=== PATIENT | female | born 1965 | race Caucasian/White ===

== ENCOUNTER 2017-07-07 17:12 | Emergency (ER) | payer MEDICAID ==
[~2017-07-07] VITALS: Ht 157.5 cm; Wt 67.1 kg
[2017-07-07 17:25] VITALS: BP 185/123
--- NOTE | 2017-07-07 17:42 | NUR ---
ASSUMED PATIENT CARE, CONCUR WITH TRIAGE. NURSING ASSESSMENT COMPLETED.
[2017-07-07] MEDS ORDERED: NACL 0.9% 1,000 ML IV ONE (17:50)
[2017-07-07] MEDS ORDERED: ASPIRIN 325 MG TAB PO ONE (17:50)
[2017-07-07] MEDS ORDERED: ONDANSETRON 4 MG/2 ML VIAL IVP ONE (17:50)
[2017-07-07] MEDS ORDERED: LORazepam 2 MG/ML VIAL IVP ONE (17:50)
[2017-07-07 18:23] LABS: BASOPHILS # (AUTO) 0.4 K/uL (0.00-0.22); EOSINOPHILS # (AUTO) 0.1 K/uL (0-0.4); HEMATOCRIT 43.4 % (36-48); HEMOGLOBIN 14.7 g/dL (12.0-16.0); LYMPHOCYTES # (AUTO) 2.2 K/uL (2.5-16.5); MEAN CORPUSCULAR HEMOGLOBIN 29 pg (27-31); MEAN CORPUSCULAR HGB CONC 34 g/dL (33-37); MEAN CORPUSCULAR VOLUME 85 fL (80-94); MONOCYTES # (AUTO) 0.4 K/uL (0.8-1.0); NEUTROPHILS # (AUTO) 3.8 K/uL (1.8-7.7); PLATELET COUNT (AUTO) 211 K/uL (140-450); RED BLOOD CELL COUNT(AUTO) 5.08 MIL/uL (4.20-5.40); RED CELL DISTRIBUTION WIDTH 12.4 % (11.6-13.7); WHITE BLOOD COUNT (AUTO) 6.9 K/uL (4.8-10.8)
--- NOTE | 2017-07-07 18:29 | NUR ---
DIAGNOSTIC TESTING INITIATED, IV ACCESS ESTABLISHED, LABS DRAWN, XRAY, AND EKG COMPLETED. MAINTAINED ON CARDIAC MONITORING, SAFETY PRECAUTIONS.
[2017-07-07 18:34] LABS: ANION GAP 12.4 (8-16); CARBON DIOXIDE 30.8 mmol/L (21-32); CREATININE 0.9 mg/dL (0.6-1.3); POTASSIUM 3.2 mmol/L (3.5-5.1)
[2017-07-07 18:40] LABS: ALBUMIN 3.9 g/dL (3.4-5.0); TOTAL BILIRUBIN 0.4 mg/dL (0.0-1.0)
[2017-07-07 18:43] LABS: PROTHROMBIN TIME 10.8 secs (10.8-13.4)
[2017-07-07 18:58] LABS: D-DIMER < 100 ng/ml (0-400)
--- NOTE | 2017-07-07 19:25 | NUR ---
report recieved and care taken
[2017-07-07] MEDS ORDERED: POTASSIUM CHLORIDE 10 MEQ TABER PO ONE (19:35)
[2017-07-07 21:00] VITALS: BP 185/123
--- NOTE | 2017-07-07 21:00 | NUR ---
Patient discharged with v/s stable. Written and verbal after care instructions given and explained. Patient verbalized understanding. Ambulatory with steady gait. All questions addressed prior to discharge. Advised to follow up with PMD.
== END 2017-07-07 21:00 | disposition home or self-care (01) ==
LOC: MED 17:12
DX: R07.89 Other chest pain (principal); E87.6 Hypokalemia; I10 Essential (primary) hypertension; R11.0 Nausea; R53.1 Weakness
CPT/HCPCS: 36415; 71045; 80053; 83880; 84484; 85025; 85379; 85610; 85730; 93005; 96361; 96374; 96375; 99285; J2060; J2405; Q0092

== ENCOUNTER 2018-01-04 09:33 | Inpatient (IN) | payer MEDICAID ==
[~2018-01-04] VITALS: Ht 160 cm; Wt 68.5 kg
[2018-01-04 09:40] VITALS: BP 184/107
--- NOTE | 2018-01-04 09:42 | NUR ---
pt ambulated to er bed 05
--- NOTE | 2018-01-04 09:45 | NUR ---
52Y/F BIB DAUGHTER WITH C/O HIGH BLOOD PRESSURE, DIZZINESS, PULSATING H/A, ABDOMINAL PAIN, "THROAT TIGHTENING", SINCE THIS MORNING; PT AAO, NO C/O SOB; BED DOWN; BEDRAILS UP X 1; ER ER MD AWARE AND NOTIFIED OF PT STATUS; WILL CONT TO MONITOR. HX; HTN, THYROID PROBLEMS RX; LEVOTHYROXINE, PAROXETINE
--- NOTE | 2018-01-04 09:54 | NUR ---
Patient being evaluated by physician at bedside.
[2018-01-04] MEDS ORDERED: NITROGLYCERIN 0.4 MG TAB SL ONE (09:55)
[2018-01-04] MEDS ORDERED: ASPIRIN 81 MG TAB.CHEW PO ONE (09:55)
--- NOTE | 2018-01-04 10:17 | NUR ---
RAD AT BEDSIDE
--- NOTE | 2018-01-04 10:18 | NUR ---
LAB AT BEDSIDE
[2018-01-04] MEDS ORDERED: ACETAMINOPHEN 325 MG TAB PO ONE (10:25)
[2018-01-04 10:48] LABS: BASOPHILS % (AUTO) 0.9 % (0.0-2.0); EOSINOPHILS # (AUTO) 0.2 K/uL (0-0.4); EOSINOPHILS % (AUTO) 2.9 % (0.0-4.0); HEMATOCRIT 43.1 % (36-48); HEMOGLOBIN 14.6 g/dL (12.0-16.0); LYMPHOCYTES # (AUTO) 1.7 K/uL (2.5-16.5); LYMPHOCYTES % (AUTO) 32.6 % (20.5-51.1); MEAN CORPUSCULAR HEMOGLOBIN 30 pg (27-31); MEAN CORPUSCULAR HGB CONC 34 g/dL (33-37); MEAN CORPUSCULAR VOLUME 87.1 fL (80-94); MONOCYTES # (AUTO) 0.3 K/uL (0.8-1.0); MONOCYTES % (AUTO) 4.8 % (1.7-9.3); NEUTROPHILS # (AUTO) 3.1 K/uL (1.8-7.7); NEUTROPHILS % (AUTO) 58.8 % (42.2-75.2); PLATELET COUNT (AUTO) 184 K/uL (140-450); RED BLOOD CELL COUNT(AUTO) 4.94 MIL/uL (4.20-5.40); RED CELL DISTRIBUTION WIDTH 13.8 % (11.6-13.7); WHITE BLOOD COUNT (AUTO) 5.3 K/uL (4.8-10.8)
[2018-01-04 11:03] LABS: ANION GAP 9.9 (8-16); CARBON DIOXIDE 27.7 mmol/L (21-32); CREATININE 0.6 mg/dL (0.6-1.3); POTASSIUM 3.6 mmol/L (3.5-5.1)
[2018-01-04 11:09] LABS: ALBUMIN 3.7 g/dL (3.4-5.0); TOTAL BILIRUBIN 0.3 mg/dL (0.0-1.0)
--- NOTE | 2018-01-04 11:54 | NUR ---
Patient will be admitted to care of DR. SOLARES. Admited to TELE FLOOR. Will go to room 125-A. Belongings list completed. Report to MAIKEL Velasquez RN.
[2018-01-04 12:05] VITALS: BP 167/80
--- NOTE | 2018-01-04 12:05 | NUR ---
RECEIVED REPORT FROM ED NURSE CARMEN. PT ARRIVED TO UNIT VIA GURNEY. PT IN STABLE CONDITION. PT IS MACANESE SPEAKING. SKIN INTACT. LUNGS CTA. HEART RHYTHM REGULAR. DENIES PAIN AND DISCOMFORT AT THIS TIME. IV SITE PATENT AND ASYMPTOMATIC. PT SEEN AMBULATORY WITH EVEN AND STEADY GAIT. VITALS ARE SPO2 98%, HR 75, TEMP 97.5 F, RR 17, BP 167/80. WILL AWAIT FOR FLOOR ORDERS. ALL SAFETY PRECAUTIONS IN PLACE, WILL CONTINUE TO MONITOR.
[2018-01-04] MEDS ORDERED: ONDANSETRON 4 MG/2 ML VIAL IVP PRN (13:55)
[2018-01-04] MEDS ORDERED: ACETAMINOPHEN 325 MG TAB PO PRN (13:55)
--- NOTE | 2018-01-04 14:00 | NUR ---
DAUGHTER AT BEDSIDE TO PROVIDE ADMISSION HISTORY. FILM REPLACEMENT ORDERER SERVICES OFFERED BUT PT PREFERS DAUGHTER TO TRANSLATE. ADMISSION HISTORY ALSO TAKEN FROM H&P.
[2018-01-04 14:22] LABS: PROTHROMBIN TIME 9.5 secs (10.8-13.4)
[2018-01-04 14:29] LABS: FREE T4 (FREE THYROXINE) 0.88 ng/dL (0.76-1.46); PHOSPHORUS 3.6 mg/dL (2.5-4.9)
[2018-01-04] MEDS ORDERED: SYN.05 PO (14:34)
[2018-01-04] MEDS ORDERED: PAX10 PO (14:34)
[2018-01-04] MEDS ORDERED: ESTR1TAB19 PO (14:34)
[2018-01-04] MEDS: NACL 0.9% 1,000 ML IV SCH (14:37)
--- NOTE | 2018-01-04 14:37 | NUR ---
SCHEDULED IVF ADMINISTERED PER MD ORDERS. PT STATES THAT SHE "FEELS WELL". NO COMPLAINTS OF PAIN OR DISCOMFORT. WILL CONTINUE TO MONITOR.
[2018-01-04 16:00] VITALS: BP 130/84
--- NOTE | 2018-01-04 17:20 | NUR ---
PT INQUIRING ABOUT DIET. HAVE NOTIFIED MD THAT PT STILL DOES NOT HAVE ACTIVE DIET ORDER FOR DINNER. MD TO PUT IN ORDER FOR DIET.
--- NOTE | 2018-01-04 19:11 | NUR ---
ENDORSED PLAN OF CARE TO FACILITIES DIRECTOR RN. PT IN STABLE CONDITION.
--- NOTE | 2018-01-04 19:11 | NUR ---
RECEIVED BEDSIDE REPORT FROM DAY SHIFT RN MAIKEL. PT IN BED, ON RA, NO SIGNS OF ACUTE DISTRESS, FAMILY AT BEDSIDE. IV IN LEFT AC, 22 G, INFUSING NS AT 50 ML/HR. V/S TAKEN ALL WITHIN BASELINE, UPDATED BOARD, CALL LIGHT WITHIN REACH, BED IN LOWEST POSITION. WILL CONTINUE TO MONITOR.
[2018-01-04 20:00] VITALS: BP 159/98
[2018-01-04] MEDS: HYDROcodone/APAP 5/325 MG 1 TAB TAB PO PRN (20:24)
[2018-01-04] MEDS: DOCUSATE SODIUM 100 MG GELCAP PO SCH (20:24)
[2018-01-04] MEDS: METOPROLOL 25 MG TAB PO SCH (20:24)
--- NOTE | 2018-01-04 20:24 | NUR ---
PT C/O PAIN 6/10 IN HEAD AND NECK. WILL MEDICATE ACCORDING TO MD ORDER.
--- NOTE | 2018-01-04 23:34 | NUR ---
PT SLEEPING IN BED NO SIGNS OF DISTRESS, CALL LIGHT WITHIN REACH, WILL REASSESS B/P WHEN APPROPRIATE.
[2018-01-05] VITALS: BP 150/72
--- NOTE | 2018-01-05 01:45 | NUR ---
PT SLEEPING IN BED NO SIGNS OF DISTRESS. WILL CONTINUE TO MONITOR. CALL LIGHT WITHIN REACH.
[2018-01-05 04:00] VITALS: BP 150/66
[2018-01-05] MEDS: HYDROcodone/APAP 5/325 MG 1 TAB TAB PO PRN (04:12)
--- NOTE | 2018-01-05 04:12 | NUR ---
PT C/O PAIN 6/10 IN HEAD AND NECK. WILL MEDICATE ACCORDING TO MD ORDER.
--- NOTE | 2018-01-05 06:06 | NUR ---
PT ASLEEP IN BED, NO SIGNS OF DISTRESS, WILL GIVE DUE MEDICATION.
[2018-01-05] MEDS: LEVOTHYROXINE 0.05 MG TAB PO SCH (06:33)
--- NOTE | 2018-01-05 07:26 | NUR ---
ENDORSED PT TO DAY SHIFT NURSE. PT STABLE.
--- NOTE | 2018-01-05 07:30 | NUR ---
RECEIVED REPORT FROM HANDBAG PARTS CUTTER RN. PT IN STABLE CONDITION. SKIN INTACT. DENIES PAIN AND DISCOMFORT AT THIS TIME. LUNGS CTA. HEART RHYTHM IS REGULAR. IV SITE PATENT AND ASYMPTOMATIC, RUNNING IVF PER MD ORDERS. VITALS STABLE. ALL SAFETY PRECAUTIONS IN PLACE, WILL CONTINUE TO MONITOR.
[2018-01-05 08:00] VITALS: BP 141/92
[2018-01-05] MEDS ORDERED: ESTRADIOL 1 MG TAB PO SCH (09:00)
[2018-01-05] MEDS ORDERED: LISINOPRIL 5 MG TAB PO SCH (09:00)
[2018-01-05 09:20] LABS: APPEARANCE,URINE CLEAR (CLEAR); BILIRUBIN,URINE NEGATIVE (NEGATIVE); BLOOD, URINE NEGATIVE (NEGATIVE); COLOR,URINE YELLOW (YELLOW); LEUKOCYTE ESTERASE ,URINE NEGATIVE (NEGATIVE); NITRITE, URINE NEGATIVE (NEGATIVE); UGLUCOSE NEGATIVE (NEGATIVE)
[2018-01-05 09:32] LABS: BARBITURATE, URINE NEG. ng/ml (NEG <=200); BENZODIAZEPINE, URINE NEG. ng/mL (NEG <=200); CANNABINOID, URINE NEG. ng/mL (NEG <=50); COCAINE, URINE NEG. ng/mL (NEG <=300); OPIATE, URINE NEG. ng/mL (NEG <=2000); PHENCYCLIDINE SCREEN,URINE NEG. ng/mL (NEG <=25)
[2018-01-05 09:54] LABS: BASOPHILS % (AUTO) 0.6 % (0.0-2.0); EOSINOPHILS # (AUTO) 0.1 K/uL (0-0.4); EOSINOPHILS % (AUTO) 2.1 % (0.0-4.0); HEMATOCRIT 41.9 % (36-48); HEMOGLOBIN 14.1 g/dL (12.0-16.0); LYMPHOCYTES % (AUTO) 30.8 % (20.5-51.1); MEAN CORPUSCULAR HEMOGLOBIN 30 pg (27-31); MEAN CORPUSCULAR HGB CONC 34 g/dL (33-37); MEAN CORPUSCULAR VOLUME 87.6 fL (80-94); MONOCYTES # (AUTO) 0.5 K/uL (0.8-1.0); MONOCYTES % (AUTO) 7.1 % (1.7-9.3); NEUTROPHILS # (AUTO) 3.9 K/uL (1.8-7.7); NEUTROPHILS % (AUTO) 59.4 % (42.2-75.2); PLATELET COUNT (AUTO) 194 K/uL (140-450); RED BLOOD CELL COUNT(AUTO) 4.78 MIL/uL (4.20-5.40); RED CELL DISTRIBUTION WIDTH 13.6 % (11.6-13.7); WHITE BLOOD COUNT (AUTO) 6.5 K/uL (4.8-10.8)
[2018-01-05] MEDS: NACL 0.9% 1,000 ML IV SCH (09:54)
[2018-01-05 10:08] LABS: ANION GAP 9.1 (8-16); CARBON DIOXIDE 30.1 mmol/L (21-32); CREATININE 0.6 mg/dL (0.6-1.3); POTASSIUM 3.2 mmol/L (3.5-5.1)
[2018-01-05 10:16] LABS: CHOL/HDL RATIO 3.3 (1-4.5); MAGNESIUM 1.8 mg/dL (1.8-2.4); PHOSPHORUS 3.2 mg/dL (2.5-4.9)
[2018-01-05] MEDS: PARoxetine 10 MG TAB PO SCH (10:19)
[2018-01-05] MEDS: METOPROLOL 25 MG TAB PO SCH (10:19)
[2018-01-05] MEDS: DOCUSATE SODIUM 100 MG GELCAP PO SCH ×3 (10:19→21:28)
[2018-01-05] MEDS: ATORVASTATIN 20 MG TAB PO SCH (10:19)
[2018-01-05] MEDS: ECOTRIN 81 MG TABEC PO SCH (10:20)
[2018-01-05] MEDS ORDERED: POTASSIUM CHLORIDE 10 MEQ TABER PO SCH (10:40)
--- NOTE | 2018-01-05 10:46 | NUR ---
NOTIFIED DR. RODRIGUEZ THAT PT DOES NOT WISH TO CONTINUE ESTRADIOL. TO DISCONTINUE MEDICATION.
[2018-01-05] MEDS ORDERED: amLODIPine 5 MG TAB PO SCH (11:58)
[2018-01-05 12:00] VITALS: BP 147/91
--- NOTE | 2018-01-05 13:30 | NUR ---
PT DISCONNECTED FROM IV AND SEEN WALKING TO BATHROOM WITH STEADY GAIT. FAMILY MEMBER AT BEDSIDE. ALL SAFETY MEASURES IN PLACE. WILL CONTINUE TO MONITOR.
[2018-01-05 16:00] VITALS: BP 144/85
--- NOTE | 2018-01-05 16:00 | NUR ---
PT SELF-REPORTED "SEVERAL EPISODES OF DIARRHEA". DENIES ABDOMINAL PAIN. HAT PLACED IN BATHROOM. WILL CONTINUE TO MONITOR. PT INSTRUCTED TO REPORT DIARRHEA IF IT OCCURS AGAIN. FAMILY MEMBER AT BEDSIDE TO TRANSLATE. PT AND FAMILY MEMBER VERBALIZED UNDERSTANDING.
--- NOTE | 2018-01-05 18:02 | NUR ---
PT REPORTS THAT SHE NO LONGER FEELS THE URGE TO DEFECATE. WILL CONTINUE TO MONITOR.
--- NOTE | 2018-01-05 19:16 | NUR ---
ENDORSED PLAN OF CARE TO TURBINE ROOM ATTENDANT RN. PT IN STABLE CONDITION.
--- NOTE | 2018-01-05 19:16 | NUR ---
RECEIVED BEDSIDE REPORT FROM DAY SHIFT RN MAIKEL. PT IN BED NO SIGNS OF ACUTE DISTRESS. ON RA, IV IN LEFT AC 22 G, SL, PATENT DRESSING INTACT. EXPLAINED PLAN OF CARE, UPDATED BOARD, BED IN LOWEST POSITION, CALL LIGHT WITHIN REACH. WILL TAKE V/S AND GIVE DUE MEDICATIONS.
[2018-01-05 20:00] VITALS: BP 150/96
--- NOTE | 2018-01-05 20:00 | NUR ---
PT C/O LEFT SIDED CHEST PAIN 6/10 RADIATING TO BACK OF HEAD. B/P: 150/96, HR 64, RR 16, O2 SAT 98%. WILL GIVE NITROGLYCERIN ACCORDING TO MD ORDER. CHARGE NURSE SHAILA AND DR ESPINOZA AWARE. WILL CONTINUE TO MONITOR.
[2018-01-05] MEDS: NITROGLYCERIN 0.4 MG TAB SL PRN ×2 (20:01→20:06)
--- NOTE | 2018-01-05 20:01 | NUR ---
ADMINISTERED NITROGLYCERIN ACCORDING TO MD ORDER. WILL CONTINUE TO MONITOR.
--- NOTE | 2018-01-05 20:06 | NUR ---
PT C/O OF CONTINUED LEFT SIDED CHEST PAIN RADIATING TO HEAD. ADMINISTERED 2ND DOSE OF NITROGLYCERIN ACCORDING TO MD ORDER. B/P 127/79, HR 72, RR 14 O2SAT 92%. PLACED HOB TO 15 DEGREES, PLACED PT ON [address] ESPINOZA ORDERED STAT EKG, CHEST X RAY, AND TROPONIN. WILL CONTINUE TO MONITOR.
--- NOTE | 2018-01-05 20:11 | NUR ---
ASKED PT HOW SHE IS FEELING, PT STATES "NO MORE PAIN". B/P 68/35, HR 54, RR 14, O2SAT 98 ON [address] ESPINOZA AT BEDSIDE. WILL CONTINUE TO MONITOR.
--- NOTE | 2018-01-05 20:30 | NUR ---
PT STATES "I FEEL BETTER". B/P 85/46 HR 60, O2 SAT 98 ON 2 L VIA NC, RR 14. HOB FLAT. WILL CONTINUE TO MONITOR.
--- NOTE | 2018-01-05 21:30 | NUR ---
PT DENIES CHEST PAIN. B/P 108/50, HR 62, O2SAT 97% 2 L NC, RR 14. HOB FLAT WILL CONTINUE TO MONITOR. CALL LIGHT WITHIN REACH.
--- NOTE | 2018-01-05 22:23 | NUR ---
PT C/O HEADACHE 07/13. DENIES CHEST PAIN. V/S STABLE. WILL MEDICATE ACCORDING TO MD ORDER.
--- NOTE | 2018-01-05 23:45 | NUR ---
V/S TAKEN ALL WITHIN NORMAL LIMITS. DENIES PAIN. CALL LIGHT WITHIN REACH, WILL CONTINUE TO MONITOR.
[2018-01-06] VITALS: BP 118/76
--- NOTE | 2018-01-06 02:30 | NUR ---
PT RESTING IN BED NO SIGNS OF ACUTE DISTRESS. CALL LIGHT WITHIN REACH, WILL CONTINUE TO MONITOR.
[2018-01-06 04:00] VITALS: BP 123/65
--- NOTE | 2018-01-06 04:00 | NUR ---
V/S TAKEN ALL WITHIN NORMAL LIMITS, PT ON RA, DENIES PAIN. BED IN LOWEST POSITION WILL CONTINUE TO MONITOR.
--- NOTE | 2018-01-06 06:14 | NUR ---
PT RESTING IN BED SOUND RECORDING TECHNICIAN SIGNS OF DISTRESS. WILL GIVE DUE MEDICATION.
[2018-01-06] MEDS: LEVOTHYROXINE 0.05 MG TAB PO SCH (06:20)
--- NOTE | 2018-01-06 07:15 | NUR ---
ENDORSED PT TO DAY SHIFT NURSE. PT STABLE.
--- NOTE | 2018-01-06 07:15 | NUR ---
ASSUMED CONTINUITY OF CARE. NO SIGNS AND SYMPTOMS OF ACUTE DISTRESS NOTED. INITIAL ASSESSMENT DONE. EXPLAINED DIAGNOSIS, PLAN OF CARE, PAIN MANAGEMENT TEACHING, USE OF CALL LIGHT/BED/TV/BATHROOM. VERBALIZED UNDERSTANDING. CALL LIGHT WITHIN REACH.
[2018-01-06 08:00] VITALS: BP 142/88
[2018-01-06] MEDS ORDERED: LORA-476 PO (08:18)
[2018-01-06] MEDS ORDERED: AMLO5TAB PO (08:21)
[2018-01-06] MEDS ORDERED: LISI10TA11 PO (08:21)
[2018-01-06] MEDS ORDERED: METOPROLOL SUCCINATE 50 MG TABER PO SCH (09:00)
[2018-01-06] MEDS ORDERED: LISINOPRIL 10 MG TAB PO SCH (09:00)
[2018-01-06] MEDS ORDERED: amLODIPine 5 MG TAB PO SCH (09:00)
[2018-01-06] MEDS: ECOTRIN 81 MG TABEC PO SCH (09:06)
[2018-01-06] MEDS: ATORVASTATIN 20 MG TAB PO SCH (09:06)
[2018-01-06] MEDS: DOCUSATE SODIUM 100 MG GELCAP PO SCH (09:06)
[2018-01-06] MEDS: PARoxetine 10 MG TAB PO SCH (09:06)
[2018-01-06 09:12] LABS: ANION GAP 10.8 (8-16); CARBON DIOXIDE 28.1 mmol/L (21-32); CREATININE 0.6 mg/dL (0.6-1.3); POTASSIUM 3.9 mmol/L (3.5-5.1)
--- NOTE | 2018-01-06 09:58 | NUR ---
PATIENT HAS BEEN SCREENED AND CATEGORIZED MODERATE NUTRITION RISK. PATIENT WILL BE SEEN WITHIN 3-5 DAYS OF ADMISSION. 01/07/18 01/09/18 KASSY MCMANUS MBA, RD
--- NOTE | 2018-01-06 10:20 | NUR ---
EXPLAINED TO PT. AND PT. DAUGHTER -BRENNON ABOUT MD D/C ORDER, D/C INSTRUCTIONS AND TEACHING, PCP FOLLOW UP WITHIN 3-5 OF DC, MD PRESCRIPTION LIST EDUCATION, DISEASE MANAGEMENT TEACHING, PAIN MANAGEMENT TEACHING. PT. AND PT. DAUGHTER -BRENNON VERBALIZED UNDERSTANDING.
--- NOTE | 2018-01-06 10:35 | NUR ---
D/C HOME ACCOMPANIED BY PT. DAUGHTER -BRENNON. REFUSED USE OF WHEELCHAIR FOR D/C. PT. AMBULATORY AND HAVE STEADY GAIT AND BALANCE. AWAKE, ALERT, AND ORIENTED X4. SPEECH CLEAR. NO C/O PAIN. NO SOB, NOTED. IN STABLE CONDITION. INFORMED CHARGE NURSE WONG ROSALES.
--- NOTE | 2018-01-07 13:48 | NUR ---
RETRO PER FRUIT THINNER MACHINE OPERATOR JOESPH, SEND TO [facility] PENDING REF# [id number] FAX# [phone] [facility] PH# [phone] AND TO [facility]. DISCHARGE SUMMARY, ER 'S NOTE, H&P, CONSULTATION NOTE FAXED TO [facility] PENDING REF# [id number] FAX# [phone] [facility] PH# [phone] AND TO [facility] [phone] PH# [phone].
== END 2018-01-06 10:35 | disposition home or self-care (01) | DRG 203 ==
LOC: MED 09:33 → MMU 11:50
PROVIDERS: ADMIT Family Medicine; ATTEND Family Medicine
DX: M94.0 Chondrocostal junction syndrome [Tietze] (principal); E03.9 Hypothyroidism, unspecified; E87.6 Hypokalemia; F32.9 Major depressive disorder, single episode, unspecified; F41.1 Generalized anxiety disorder; I16.0 Hypertensive urgency; Z90.710 Acquired absence of both cervix and uterus
CPT/HCPCS: 36415; 71045; 80048; 80053; 80305; 81003; 81025; 83036; 83735; 83880; 84100; 84439; 84443; 84484; 85025; 85610; 85730; 87081; 93005; 99285; J7030; Q0092

== ENCOUNTER 2018-07-10 17:13 | Inpatient (IN) | payer MEDICAID ==
[~2018-07-10] VITALS: Ht 160 cm; Wt 67.6 kg
[~2018-07-10 17:13] MED LIST: AMLO5TAB PO; ESTR1TAB19 PO; LISI10TA11 PO; LORA-476 PO; PAX10 PO; SYN.05 PO
--- NOTE | 2018-07-10 17:13 | NUR ---
PT BIBA ALS TO BED 4
[2018-07-10 17:17] VITALS: BP 160/106
--- NOTE | 2018-07-10 17:49 | NUR ---
PT PERSIAN SPEAKER, A&OX4, BREATHING EVEN AND UNLABORED, NSR ON MONITOR, LUNG SOUNDS CLEAR BILAT. C/O SUDDEN ONSET LEFT SIDED CHEST PAIN WHILE IN SHOULDER THERAPY 1 HOUR JUNIOR GRAPHIC DESIGNER. NAUSEA JUNIOR GRAPHIC DESIGNER, RESOLVED NOW. NO SOB. +DRY MOUTH.
[2018-07-10] MEDS ORDERED: NITROGLYCERIN 2% 1 GM PKT TP ONE (17:50)
--- NOTE | 2018-07-10 17:56 | NUR ---
XRAY AT BEDSIDE
[2018-07-10 18:13] LABS: BASOPHILS % (AUTO) 0.5 % (0.0-2.0); EOSINOPHILS % (AUTO) 0.6 % (0.0-4.0); HEMATOCRIT 43.1 % (36-48); HEMOGLOBIN 14.4 g/dL (12.0-16.0); LYMPHOCYTES % (AUTO) 16.8 % (20.5-51.1); MEAN CORPUSCULAR HEMOGLOBIN 29 pg (27-31); MEAN CORPUSCULAR HGB CONC 33 g/dL (33-37); MEAN CORPUSCULAR VOLUME 86.6 fL (80-94); MONOCYTES # (AUTO) 0.3 K/uL (0.8-1.0); MONOCYTES % (AUTO) 5.1 % (1.7-9.3); NEUTROPHILS # (AUTO) 4.7 K/uL (1.8-7.7); PLATELET COUNT (AUTO) 219 K/uL (140-450); RED BLOOD CELL COUNT(AUTO) 4.98 MIL/uL (4.20-5.40); WHITE BLOOD COUNT (AUTO) 6.1 K/uL (4.8-10.8)
[2018-07-10 18:30] LABS: ANION GAP 12.4 (8-16); CARBON DIOXIDE 26.6 mmol/L (21-32); CREATININE 0.8 mg/dL (0.6-1.3)
[2018-07-10 18:35] LABS: ALBUMIN 3.8 g/dL (3.4-5.0); TOTAL BILIRUBIN 0.4 mg/dL (0.0-1.0)
--- NOTE | 2018-07-10 18:50 | NUR ---
PT'S FAMILY AT BEDSIDE. PT'S CP DECREASED 05/15. BREATHING EVEN AND UNLABORED. PT'S SON WENT HOME TO BRING HOME MEDS FOR MED REC.
[2018-07-10 18:52] LABS: PROTHROMBIN TIME 10.6 secs (10.8-13.4)
[2018-07-10] MEDS ORDERED: HEPARIN PER PHARMACY MC ONE (18:55)
[2018-07-10] MEDS ORDERED: hePARIN / DEXT 5% PREMIX 250 ML IV ONE (18:55)
[2018-07-10] MEDS ORDERED: HYDROcodone/APAP 7.5/325 MG 1 TAB PO PRN (19:00)
[2018-07-10] MEDS ORDERED: ACETAMINOPHEN 325 MG TAB PO PRN (19:00)
[2018-07-10] MEDS ORDERED: ONDANSETRON 4 MG/2 ML VIAL IM/IVP PRN (19:00)
[2018-07-10] MEDS ORDERED: MORPHINE SULFATE 2 MG/ML SYR IVP PRN (19:00)
[2018-07-10] MEDS ORDERED: NITROGLYCERIN 0.4 MG TAB SL PRN (19:00)
--- NOTE | 2018-07-10 19:03 | NUR ---
EKG IN PROGRESS
--- NOTE | 2018-07-10 19:15 | NUR ---
PT ENDORSED TO BEBO RICE
--- NOTE | 2018-07-10 20:04 | NUR ---
RECEIVED BEDSIDE REPORT FROM CIVILIAN JAIL OFFICER KERVIN. PT IS AMBULATORY. AAO X 4. AFGHAN SPEAKING ONLY. SKIN INTACT. PT WITH NITRO PATCH ON. STATES CHEST DISCOMFORT IS 2/10. FIRST TROPIN NEG. PT ON HEPARIN DRIP 800 U/H. LUNG SOUNDS ARE CLEAR. IV ON L AC 20G CLEAN DRY AND PATENT. VS: 149/100 HR 82, 99% ON 2L, REMOVED NC SAT 98% ON RA. RR 16, TEMP 98.2 PLAN OF CARE DISCUSSED WITH PT. PT VERBALIZED UNDERSTANDING. CALL IGHT WITHIN REACH Addendum: 07/10/18 at 2203 by Shannon Babin RN MRSA SWAB COLLECTED
[2018-07-10 20:08] VITALS: BP 149/100
[2018-07-10] MEDS ORDERED: CONJ0.6288 VG (20:12)
[2018-07-10] MEDS ORDERED: PROG100C4 PO (20:12)
[2018-07-10] MEDS ORDERED: LOSA50TA66 PO (20:12)
[2018-07-10] MEDS ORDERED: PROGESTERONE MICRONIZED 100 MG PO SCH (21:00)
[2018-07-10 21:01] LABS: CHOL/HDL RATIO 3.1 (1-4.5); PHOSPHORUS 3.1 mg/dL (2.5-4.9); THYROID STIMULATING HORMONE 2.02 uIU/mL (0.34-3.74)
[2018-07-10] MEDS: METOPROLOL 25 MG TAB PO SCH (21:26)
--- NOTE | 2018-07-10 21:26 | NUR ---
DUE MEDICATION GIVEN. PT TOLERATED WELL. CALL LIGHT WITHIN REACH.
[2018-07-10] MEDS: NACL 0.9% 1,000 ML IV SCH (21:27)
[2018-07-10] MEDS: LOSARTAN 50 MG TAB PO SCH (22:23)
[2018-07-10] MEDS ORDERED: LOSARTAN 50 MG TAB PO SCH (22:30)
[2018-07-10 23:51] VITALS: BP 141/87
--- NOTE | 2018-07-11 | NUR ---
VITAL SIGNS ARE WITHIN NORMAL LIMITS. TYLENOL GIVEN FOR HEADACHE. ALL NEEDS MET AT THIS TIME. CALL LIGHT WITHIN REACH.
--- NOTE | 2018-07-11 02:00 | NUR ---
PT IS SLEEPING COMFORTABLY IN BED. NO S/S OF DISTRESS. CALL LIGHT IS WITHIN REACH.
[2018-07-11 04:00] VITALS: BP 134/88
--- NOTE | 2018-07-11 04:00 | NUR ---
VS ARE WITHIN NORMAL LIMITS. ALL NEEDS MET AT THIS TIME. CALL LIGHT WITHIN REACH. WILL CONTINUE TO MONITOR.
[2018-07-11] MEDS: NACL 0.9% 1,000 ML IV SCH ×2 (06:15→16:00)
[2018-07-11 06:49] LABS: BASOPHILS % (AUTO) 0.5 % (0.0-2.0); EOSINOPHILS # (AUTO) 0.1 K/uL (0-0.4); EOSINOPHILS % (AUTO) 0.9 % (0.0-4.0); HEMATOCRIT 42.9 % (36-48); HEMOGLOBIN 14.2 g/dL (12.0-16.0); LYMPHOCYTES # (AUTO) 1.9 K/uL (2.5-16.5); LYMPHOCYTES % (AUTO) 30.2 % (20.5-51.1); MEAN CORPUSCULAR HEMOGLOBIN 29 pg (27-31); MEAN CORPUSCULAR HGB CONC 33 g/dL (33-37); MEAN CORPUSCULAR VOLUME 87.2 fL (80-94); MONOCYTES # (AUTO) 0.4 K/uL (0.8-1.0); MONOCYTES % (AUTO) 6.8 % (1.7-9.3); NEUTROPHILS % (AUTO) 61.6 % (42.2-75.2); PLATELET COUNT (AUTO) 188 K/uL (140-450); RED BLOOD CELL COUNT(AUTO) 4.92 MIL/uL (4.20-5.40); RED CELL DISTRIBUTION WIDTH 13.2 % (11.6-13.7); WHITE BLOOD COUNT (AUTO) 6.4 K/uL (4.8-10.8)
[2018-07-11 07:13] LABS: PHOSPHORUS 4.3 mg/dL (2.5-4.9)
[2018-07-11 07:16] LABS: ANION GAP 12.4 (8-16); CREATININE 0.8 mg/dL (0.6-1.3); POTASSIUM 4.4 mmol/L (3.5-5.1)
--- NOTE | 2018-07-11 07:27 | NUR ---
GAVE BEDSIDE REPORT TO HEATHER LAGUNAS. PT ENDORSED IN STABLE CONDITION.
--- NOTE | 2018-07-11 07:28 | NUR ---
RECEIVED BEDSIDE REPORT FROM BEBO SPRINGER. PATIENT AAOX4. PATIENT ON ROOM AIR, NO DISTRESS NOTED. SKIN INTACT, PATIENT CONTINENT AND AMBULATORY. PATIENT ON TELE MONITOR AND STANDARD PRECAUTIONS. BED IN LOW POSITION, CALL LIGHT WITHIN REACH, SIDE RAILS X2 UP. WILL CONTINUE TO MONITOR. Addendum: 07/11/18 at 0832 by Kierra Glez RN IV ON L AC 20 G INFUSING NS AT 100. IV ASYMPTOMATIC, PATENT, AND INTACT.
[2018-07-11 07:59] LABS: BARBITURATE, URINE NEG. ng/ml (NEG <=200); BENZODIAZEPINE, URINE NEG. ng/mL (NEG <=200); CANNABINOID, URINE NEG. ng/mL (NEG <=50); COCAINE, URINE NEG. ng/mL (NEG <=300); OPIATE, URINE NEG. ng/mL (NEG <=2000); PHENCYCLIDINE SCREEN,URINE NEG. ng/mL (NEG <=25)
[2018-07-11 08:00] VITALS: BP 137/85
--- NOTE | 2018-07-11 08:06 | NUR ---
PATIENT HAS BEEN SCREENED AND CATEGORIZED MODERATE NUTRITION RISK. PATIENT WILL BE SEEN WITHIN 3-5 DAYS OF ADMISSION. 07/13/18EULALIA TORRES RD
[2018-07-11 08:22] LABS: APPEARANCE,URINE CLEAR (CLEAR); BILIRUBIN,URINE NEGATIVE (NEGATIVE); BLOOD, URINE NEGATIVE (NEGATIVE); COLOR,URINE YELLOW (YELLOW); LEUKOCYTE ESTERASE ,URINE TRACE (NEGATIVE); NITRITE, URINE NEGATIVE (NEGATIVE); PH,URINE 6.5 (5.0-9.0); UGLUCOSE NEGATIVE (NEGATIVE)
[2018-07-11 08:43] LABS: RBC,URINE 0-5 /HPF (0-5); WBC,URINE 0-5 /HPF (0-5)
[2018-07-11] MEDS: ASPIRIN 81 MG TAB.CHEW PO SCH (08:43)
[2018-07-11] MEDS: ATORVASTATIN 20 MG TAB PO SCH (08:44)
[2018-07-11] MEDS: PARoxetine 10 MG TAB PO SCH (08:46)
[2018-07-11] MEDS: LEVOTHYROXINE 0.05 MG TAB PO SCH (08:47)
[2018-07-11] MEDS: METOPROLOL 25 MG TAB PO SCH ×2 (08:48→20:36)
[2018-07-11] MEDS: LOSARTAN 50 MG TAB PO SCH (08:49)
--- NOTE | 2018-07-11 08:52 | NUR ---
ADMINISTERED SCHEDULED MEDS. PATIENT TOLERATED WELL. WILL CONTINUE TO MONITOR.
[2018-07-11] MEDS ORDERED: LISINOPRIL 5 MG TAB PO SCH (09:00)
[2018-07-11] MEDS ORDERED: LORazepam 2 MG/ML VIAL IM/IVP PRN (09:15)
--- NOTE | 2018-07-11 11:33 | NUR ---
PATIENT SLEEPING. NO DISTRESS NOTED, ON ROOM AIR. WILL CONTINUE TO MONITOR.
[2018-07-11 12:00] VITALS: BP 138/80
--- NOTE | 2018-07-11 14:00 | NUR ---
PATIENT WATCHING TV, ON ROOM AIR, NO DISTRESS NOTED. WILL CONTINUE TO MONITOR.
[2018-07-11 16:00] VITALS: BP 140/84
--- NOTE | 2018-07-11 18:00 | NUR ---
FAMILY AT BEDSIDE. NO COMPLAINTS AT THIS TIME, ON ROOM AIR. WILL CONTINUE TO MONITOR.
--- NOTE | 2018-07-11 19:29 | NUR ---
GAVE BEDSIDE REPORT TO BEBO SPRINGER. PATIENT ENDORSED IN STABLE CONDITION.
--- NOTE | 2018-07-11 19:30 | NUR ---
RECEIVED BEDSIDE REPORT FROM HEATHER LAGUNAS. PT IS AMBULATORY. AAO X 4. PERSIAN SPEAKING ONLY. SKIN INTACT. PT STATES CHEST DISCOMFORT IS 1/10. AND FEELS BETTER TODAY. TROPIN NEG X 3. LUNG SOUNDS ARE CLEAR. IV ON L AC 20G CLEAN DRY AND PATENT. PT IS ON ROOM AIR. NO S/S OF DISTRESS. PLAN OF CARE DISCUSSED WITH PT AND FAMILY. PT VERBALIZED UNDERSTANDING. CALL LIGHT WITHIN REACH
[2018-07-11 20:00] VITALS: BP 141/82
--- NOTE | 2018-07-11 20:36 | NUR ---
VITAL SIGNS ARE STABLE B/P 141/82 HR 59. NO S/S OF DISTRESS. DUE MEDICATIONS GIVEN. PT TOLERATED WELL. ALL NEEDS MET AT THIS TIME. WILL CONTINUE TO MONITOR.
[2018-07-11] MEDS ORDERED: PROGESTERONE 100MG CAP PO SCH (21:00)
--- NOTE | 2018-07-11 22:39 | NUR ---
ASSISTED PT TO THE BATHROOM. PT WITH STEADY GAIT. ALL NEEDS MET. CALL LIGHT WITHIN REACH.
[2018-07-12] VITALS: BP 130/77
--- NOTE | 2018-07-12 00:27 | NUR ---
VITAL SIGNS ARE WITHIN NORMAL LIMITS. ALL NEEDS MET AT THIS TIME. CALL LIGHT IS WITHIN REACH.
--- NOTE | 2018-07-12 02:20 | NUR ---
PT IS SLEEPING COMFORTABLY IN BED. NO S/S OF DISTRESS. CALL LIGHT IS WITHIN REACH.
[2018-07-12] MEDS: NACL 0.9% 1,000 ML IV SCH ×2 (03:33→12:00)
[2018-07-12 04:00] VITALS: BP 125/76
--- NOTE | 2018-07-12 04:00 | NUR ---
VITAL SIGNS ARE WITHIN NORMAL LIMITS. ALL NEEDS MET AT THIS TIME. WILL CONTINUE TO MONITOR.
--- NOTE | 2018-07-12 06:49 | NUR ---
PT OFF UNIT FOR RADIOLOGY FOR XR OF CERVICAL SPINE WITH BERONICA. PT IS IN STABLE CONDITION.
--- NOTE | 2018-07-12 06:58 | NUR ---
PT BACK ON UNIT. NO S/S OF DISTRESS. CALL LIGHT WITHIN REACH.
--- NOTE | 2018-07-12 07:28 | NUR ---
RECEIVED BEDSIDE REPORT FROM BEBO SPRINGER. PT STABLE, AWAKE, ALERT AND ORIENTED X4. NO SIGNS OF DISTRESS NOTED. DENIES CHEST PAIN OR SOB. NO REDNESS, SWELLING, OR INFLAMMATION NOTED ON IV SITE. CALL GUERRA WITHIN REACH. BED IN LOWEST POSITION. SAFETY MEASURES IN PLACE. PLAN OF CARE REVIEWED.
--- NOTE | 2018-07-12 07:29 | NUR ---
GAVE BEDSIDE REPORT TO AUBREE LAGUNAS. PT IS IN STABLE CONDITION.
[2018-07-12 07:46] LABS: BASOPHILS % (AUTO) 0.5 % (0.0-2.0); EOSINOPHILS # (AUTO) 0.1 K/uL (0-0.4); EOSINOPHILS % (AUTO) 0.9 % (0.0-4.0); HEMATOCRIT 43.7 % (36-48); HEMOGLOBIN 14.8 g/dL (12.0-16.0); LYMPHOCYTES # (AUTO) 2.1 K/uL (2.5-16.5); LYMPHOCYTES % (AUTO) 37.2 % (20.5-51.1); MEAN CORPUSCULAR HEMOGLOBIN 30 pg (27-31); MEAN CORPUSCULAR HGB CONC 34 g/dL (33-37); MEAN CORPUSCULAR VOLUME 87.2 fL (80-94); MONOCYTES # (AUTO) 0.3 K/uL (0.8-1.0); MONOCYTES % (AUTO) 6.2 % (1.7-9.3); NEUTROPHILS # (AUTO) 3.1 K/uL (1.8-7.7); NEUTROPHILS % (AUTO) 55.2 % (42.2-75.2); PLATELET COUNT (AUTO) 221 K/uL (140-450); RED BLOOD CELL COUNT(AUTO) 5.02 MIL/uL (4.20-5.40); RED CELL DISTRIBUTION WIDTH 13.3 % (11.6-13.7); WHITE BLOOD COUNT (AUTO) 5.5 K/uL (4.8-10.8)
[2018-07-12 07:51] LABS: ANION GAP 11.1 (8-16); CARBON DIOXIDE 29.7 mmol/L (21-32); CREATININE 0.8 mg/dL (0.6-1.3); POTASSIUM 3.8 mmol/L (3.5-5.1)
[2018-07-12 08:00] VITALS: BP 156/78
[2018-07-12 08:21] LABS: MAGNESIUM 1.9 mg/dL (1.8-2.4); PHOSPHORUS 3.1 mg/dL (2.5-4.9)
[2018-07-12] MEDS: METOPROLOL 25 MG TAB PO SCH (09:00)
[2018-07-12] MEDS: LEVOTHYROXINE 0.05 MG TAB PO SCH (09:13)
[2018-07-12] MEDS: LOSARTAN 50 MG TAB PO SCH (09:13)
[2018-07-12] MEDS: ATORVASTATIN 20 MG TAB PO SCH (09:14)
[2018-07-12] MEDS: ASPIRIN 81 MG TAB.CHEW PO SCH (09:14)
[2018-07-12] MEDS: PARoxetine 10 MG TAB PO SCH (09:14)
--- NOTE | 2018-07-12 09:27 | NUR ---
ADMINISTERED SCHEDULED MEDICATIONS, PT TOLERATED WELL. SCHEDULED METOPROLOL NOT GIVEN DUE TO HR 57.
[2018-07-12 12:00] VITALS: BP 149/90
--- NOTE | 2018-07-12 12:00 | NUR ---
VITAL SIGNS TAKEN, PT STABLE. NO SIGNS OF DISTRESS NOTED. FAMILY AT THE BEDSIDE.
[2018-07-12] MEDS ORDERED: ASPI81CT95 PO (12:03)
[2018-07-12] MEDS ORDERED: FAMO-90 PO (12:36)
[2018-07-12] MEDS ORDERED: IBUP-2213 PO (12:36)
--- NOTE | 2018-07-12 15:00 | NUR ---
D/C INSTRUCTIONS AND PRESCRIPTION GIVEN. PT VERBALIZED UNDERSTANDING. PT STABLE, ALERT AND ORIENTED X4. QUESTIONS AND CONCERNS WERE ANSWERED. PT REFUSED INFLUENZA VACCINE. SKIN INTACT. D/C IV, CATHETER TIP INTACT, BLEEDING CONTROLLED. FAMILY AT THE BEDSIDE. ESCORTED PT TO THE LOBBY.
[2018-07-14] MEDS ORDERED: CONJUGATED ESTROGENS VAG CREAM 42 GM TUBE VG SCH (09:00)
== END 2018-07-12 15:00 | disposition home or self-care (01) | DRG 756 ==
LOC: MED 17:13 → MTU 19:00
PROVIDERS: ADMIT General Practice; ATTEND General Practice
DX: F41.0 Panic disorder [episodic paroxysmal anxiety] (principal); Z91.19 Patient's noncompliance with other medical treatment and regimen; E03.9 Hypothyroidism, unspecified; F41.9 Anxiety disorder, unspecified; F32.9 Major depressive disorder, single episode, unspecified; I10 Essential (primary) hypertension; N95.2 Postmenopausal atrophic vaginitis; N32.81 Overactive bladder; Z90.710 Acquired absence of both cervix and uterus; Z82.49 Family history of ischemic heart disease and other diseases of the circulatory system
CPT/HCPCS: 36415; 71045; 72040; 80048; 80053; 80305; 81001; 81025; 82150; 83036; 83690; 83735; 83880; 84100; 84443; 84484; 85025; 85610; 85730; 87081; 93005; 99285; G0378; J1644; J7030; Q0092

== ENCOUNTER 2018-07-14 19:07 | Emergency (ER) | payer MEDICAID ==
[~2018-07-14] VITALS: Ht 160 cm; Wt 67.8 kg
[~2018-07-14 19:07] MED LIST changes: +ASPI81CT95 PO; +CONJ0.6288 VG; +FAMO-90 PO; +IBUP-2213 PO; +LOSA50TA66 PO; +PROG100C4 PO
[2018-07-14 19:25] VITALS: BP 172/102
--- NOTE | 2018-07-14 19:35 | NUR ---
TO ER BED 11
--- NOTE | 2018-07-14 19:41 | NUR ---
PT BIB DAUGHTER C/O HIGH BLOOD PRESSURE AND CHEST PAIN. PT STATES SUDDEN ON SET OF CHEST PAIN SINCE 1830, DENIES TRAUMA. PT STATES 3/10 PAIN; DESCRIBED PAIN PRESSURE, NON RADIATING AT THIS TIME. PT STATES +NAUSEA, +DIARRHEA, +SOB, +BLURRED VISION. PT STATES SHE FEELS LIKE SOMETHING IS "CHOKING HER" AROUND HER THROAT. CLEAR SPEECH. NO EDEMA PRESENT AT THIS TIME. AAOX4. PT STATES TO BE UP TO DATE W/ HOME MEDS. --PT IN GOWN IN BED; BED IN LOWER LOCKED POSITION. ER MD MADE AWARE OF PT STATUS. WILL CONTINUE TO MONITOR. PMH: THYROID, HTN RX: LOSARTAN, LEVOTHRYOXIN, PROGESTERONE
--- NOTE | 2018-07-14 19:43 | NUR ---
DR. HICKS AT BEDSIDE FOR EVALUATION.
[2018-07-14] MEDS ORDERED: cloNIDine 0.1 MG TAB PO ONE (19:50)
[2018-07-14] MEDS ORDERED: KETOROLAC 30 MG/ML VIAL IM ONE (19:50)
[2018-07-14 20:30] LABS: BASOPHILS % (AUTO) 0.4 % (0.0-2.0); EOSINOPHILS # (AUTO) 0.1 K/uL (0-0.4); HEMATOCRIT 42.1 % (36-48); HEMOGLOBIN 14.2 g/dL (12.0-16.0); LYMPHOCYTES # (AUTO) 1.8 K/uL (2.5-16.5); LYMPHOCYTES % (AUTO) 26.3 % (20.5-51.1); MEAN CORPUSCULAR HEMOGLOBIN 29 pg (27-31); MEAN CORPUSCULAR HGB CONC 34 g/dL (33-37); MEAN CORPUSCULAR VOLUME 86.9 fL (80-94); MONOCYTES # (AUTO) 0.4 K/uL (0.8-1.0); MONOCYTES % (AUTO) 5.3 % (1.7-9.3); NEUTROPHILS # (AUTO) 4.6 K/uL (1.8-7.7); PLATELET COUNT (AUTO) 223 K/uL (140-450); RED BLOOD CELL COUNT(AUTO) 4.85 MIL/uL (4.20-5.40); RED CELL DISTRIBUTION WIDTH 13.2 % (11.6-13.7); WHITE BLOOD COUNT (AUTO) 6.9 K/uL (4.8-10.8)
[2018-07-14 20:35] LABS: BILIRUBIN,URINE NEGATIVE (NEGATIVE); BLOOD, URINE NEGATIVE (NEGATIVE); LEUKOCYTE ESTERASE ,URINE NEGATIVE (NEGATIVE); NITRITE, URINE NEGATIVE (NEGATIVE); PH,URINE 6.5 (5.0-9.0); UGLUCOSE NEGATIVE (NEGATIVE)
[2018-07-14 20:38] LABS: APPEARANCE,URINE CLEAR (CLEAR); COLOR,URINE STRAW (YELLOW)
--- NOTE | 2018-07-14 20:43 | NUR ---
PT AMBULATED W/ STEADY GATE TO BR, WITH DAUGHTER.
[2018-07-14 20:54] LABS: ANION GAP 14.1 (8-16); CARBON DIOXIDE 26.8 mmol/L (21-32); CREATININE 0.9 mg/dL (0.6-1.3); POTASSIUM 3.9 mmol/L (3.5-5.1)
[2018-07-14 21:00] LABS: ALBUMIN 3.9 g/dL (3.4-5.0); TOTAL BILIRUBIN 0.3 mg/dL (0.0-1.0)
[2018-07-14 21:33] VITALS: BP 124/79
== END 2018-07-14 21:31 | disposition home or self-care (01) ==
LOC: MED 19:07
DX: I10 Essential (primary) hypertension (principal); Z79.899 Other long term (current) drug therapy; Z79.1 Long term (current) use of non-steroidal anti-inflammatories (NSAID)
CPT/HCPCS: 36415; 71045; 80053; 81003; 84484; 85025; 93005; 96372; 99284; J1885; Q0092

== ENCOUNTER 2018-12-04 13:00 | Inpatient (IN) | payer MEDICAID ==
[~2018-12-04] VITALS: Ht 162.6 cm; Wt 69.4 kg
[~2018-12-04 13:00] MED LIST changes: -AMLO5TAB PO; -ASPI81CT95 PO; -ESTR1TAB19 PO; -LISI10TA11 PO; -LORA-476 PO
[2018-12-04 13:05] VITALS: BP 166/105
--- NOTE | 2018-12-04 13:13 | NUR ---
PT AMB TO BED 2 WITH STEADY GAIT Addendum: 12/04/18 at 1317 by [facility] PT TAKEN TO BED 3.
--- NOTE | 2018-12-04 13:15 | NUR ---
BIB DAUGHTER C/O ABDOMINAL PAIN, NAUSEA, VOMITING, DIARRHEA X TODAY AT APPROX 0830. PAIN 8/10. SKIN IS PINK/WARM/DRY; AAOX4 WITH EVEN AND STEADY GAIT; VSS; PATIENT POSITIONED FOR COMFORT; HOB ELEVATED; BEDRAILS UP X1; BED DOWN. ER MD MADE AWARE OF PT STATUS.
[2018-12-04] MEDS ORDERED: ONDANSETRON 4 MG/2 ML VIAL IVP ONE (14:00)
[2018-12-04] MEDS ORDERED: KETOROLAC 30 MG/ML VIAL IVP ONE (14:00)
[2018-12-04 14:25] LABS: MEAN CORPUSCULAR HEMOGLOBIN 29 pg (27-31); MEAN CORPUSCULAR HGB CONC 34 g/dL (33-37); MEAN CORPUSCULAR VOLUME 87.9 fL (80-94); PLATELET COUNT (AUTO) 217 K/uL (140-450); RED BLOOD CELL COUNT(AUTO) 4.78 MIL/uL (4.20-5.40); WHITE BLOOD COUNT (AUTO) 15.7 K/uL (4.8-10.8)
--- NOTE | 2018-12-04 14:25 | NUR ---
PT IS RESTING IN BED AND THE ABDOMINAL PAIN HAS BEEN IMPROVED.
[2018-12-04 14:32] LABS: APPEARANCE,URINE HAZY (CLEAR); BILIRUBIN,URINE NEGATIVE (NEGATIVE); BLOOD, URINE NEGATIVE (NEGATIVE); COLOR,URINE YELLOW (YELLOW); LEUKOCYTE ESTERASE ,URINE NEGATIVE (NEGATIVE); NITRITE, URINE NEGATIVE (NEGATIVE); PH,URINE 7.5 (5.0-9.0); UGLUCOSE NEGATIVE (NEGATIVE)
[2018-12-04 14:35] LABS: CREATININE 0.7 mg/dL (0.6-1.3)
[2018-12-04 14:41] LABS: ALBUMIN 3.7 g/dL (3.4-5.0); TOTAL BILIRUBIN 0.7 mg/dL (0.0-1.0)
--- NOTE | 2018-12-04 15:15 | NUR ---
PT IS RESTING IN BED AND THE ABDOMINAL PAIN HAS BEEN IMPROVED.
[2018-12-04 15:34] LABS: LYMPHOCYTES % (MANUAL) 5 % (20-46); MONOCYTES % (MANUAL) 5 % (5-12)
[2018-12-04] MEDS ORDERED: HYDROcodone/APAP 7.5/325 MG 1 TAB PO PRN (15:45)
[2018-12-04] MEDS ORDERED: ONDANSETRON 4 MG/2 ML VIAL IM/IVP PRN (15:45)
[2018-12-04] MEDS ORDERED: DEXT 5% / NACL 0.45% 1,000 ML IV ONE (15:45)
[2018-12-04] MEDS ORDERED: ACETAMINOPHEN 325 MG TAB PO PRN (15:45)
[2018-12-04] MEDS ORDERED: MORPHINE SULFATE 2 MG/ML SYR IVP PRN (15:45)
[2018-12-04] MEDS ORDERED: DOCUSATE SODIUM 100 MG GELCAP PO PRN (15:45)
[2018-12-04] MEDS ORDERED: LORazepam 1 MG TAB PO PRN (16:30)
[2018-12-04] MEDS ORDERED: KETOROLAC 15 MG/ML VIAL IM PRN (16:30)
[2018-12-04 16:35] VITALS: BP 145/89
--- NOTE | 2018-12-04 16:35 | NUR ---
RECEIVED BEDSIDE REPORT FROM TOMATO GRADER RUFINO. PT STABLE, AWAKE, ALERT AND ORIENTED X4. NO SIGNS OF DISTRESS NOTED. DENIES PAIN OR SOB. NO REDNESS, SWELLING, OR INFLAMMATION NOTED ON IV SITE. CALL GUERRA WITHIN REACH. BED IN LOWEST POSITION. SAFETY MEASURES IN PLACE. PLAN OF CARE REVIEWED.
--- NOTE | 2018-12-04 16:35 | NUR ---
Patient will be admitted to care of acute appendicitis. Admited to Telemetry. Will go to room 120B. Belongings list completed. Report to BEBO Starkey.
[2018-12-04 16:41] LABS: PROTHROMBIN TIME 9.9 secs (10.8-13.4)
[2018-12-04 16:45] LABS: BARBITURATE, URINE NEG. ng/ml (NEG <=200); BENZODIAZEPINE, URINE NEG. ng/mL (NEG <=200); CANNABINOID, URINE NEG. ng/mL (NEG <=50); COCAINE, URINE NEG. ng/mL (NEG <=300); OPIATE, URINE NEG. ng/mL (NEG <=2000); PHENCYCLIDINE SCREEN,URINE NEG. ng/mL (NEG <=25)
[2018-12-04 16:57] LABS: CHOL/HDL RATIO 3.8 (1-4.5); MAGNESIUM 1.6 mg/dL (1.8-2.4); THYROID STIMULATING HORMONE 1.36 uIU/mL (0.34-3.74)
[2018-12-04] MEDS ORDERED: LACTOBACILLUS RHAMNOSUS GG 1 EACH CAP PO SCH (17:00)
[2018-12-04] MEDS: DEXT 5% / NACL 0.45% 1,000 ML IV SCH (17:30)
--- NOTE | 2018-12-04 17:35 | NUR ---
SURGICAL CHECKLIST DONE. DR HART AT THE BEDSIDE.
[2018-12-04] MEDS: LACTATED RINGERS 1,000 ML IV SCH (17:38)
[2018-12-04] MEDS ORDERED: MEPERIDINE 25 MG/ML SYR IVP PRN (17:40)
[2018-12-04] MEDS ORDERED: HYDROmorphone 1 MG/ML AMP IVP PRN (17:40)
[2018-12-04] MEDS ORDERED: diphenhydrAMINE 50 MG/ML VIAL IVP PRN (17:40)
[2018-12-04] MEDS ORDERED: ONDANSETRON 4 MG/2 ML VIAL IVP PRN (17:40)
[2018-12-04] MEDS ORDERED: MIDAZOLAM 2 MG/2 ML VIAL ONE (17:44)
[2018-12-04] MEDS ORDERED: fentaNYL 0.05 MG/ML VIAL ONE (17:44)
[2018-12-04] MEDS ORDERED: MEPERIDINE 50 MG/ML SYR ONE (17:45)
[2018-12-04] MEDS ORDERED: POTASSIUM CHLORIDE 40 MEQ, LIDOCAINE MPF 1% - 5 mL VIAL 25 MG in NACL 0.9% 250 ML IV SCH (18:00)
--- NOTE | 2018-12-04 18:00 | NUR ---
PT SIGNED CONSENT FOR LAPAROSCOPIC APPENDECTOMY. ADMINISTERED SCHEDULED MEDICATIONS, PT TOLERATED WELL. NO OTHER NEEDS AT THIS TIME.
--- NOTE | 2018-12-04 18:05 | NUR ---
PT WAS TAKEN TO THE OR.
[2018-12-04] MEDS: BUPIVACAINE-MPF/EPI 0.25% 30 ML VIAL INJ ONE ×2 (18:22→19:39)
--- NOTE | 2018-12-04 19:24 | NUR ---
PT IS STILL IN THE OR. ENDORSED PT TO RN WOODROW FOR CONTINUITY OF CARE. PT STABLE.
--- NOTE | 2018-12-04 20:25 | NUR ---
RECEIVED FROM OR PT. FEMALE ACCOMPANIED BY FAMILY MEMBERS SEE AWAKE AND ALERT. VERBALIZING WELL WITH FAMILY MEMBERS AND ORIENTED X 4. SPEAKS SLOVENIAN AND OMANI. S/P APPENDECTOMY WITH 3 BANDAGES IN IT. NO NOTED BLEEDING. PT. RE-ORIENTED TO CALL LIGHT USE AND CARE PLANS DISCUSSED WITH HER. TELEMETRY MONITORING.
[2018-12-04 20:34] VITALS: BP 123/74
[2018-12-04 20:43] VITALS: BP 130/68
[2018-12-04] MEDS: SODIUM PHOS / POTASSIUM PHOS 1 PKT PDR PO SCH (20:45)
[2018-12-04] MEDS: metroNIDAZOLE 500 MG/NS PREMIX 100 ML IV SCH (20:45)
[2018-12-04 21:00] VITALS: BP 128/70
--- NOTE | 2018-12-04 21:04 | NUR ---
AWAKE AND ALERT. REQUESTED FOR ICE CHIPS. PROVIDED WITH A CUP OF ICE CHIPS. ENCOURAGED TO GO SLOW IN DRINKING FOR NOW . "OK" PT.S FAMILY MEMBERS STILL HERE VISITING. MEDICATED WITH TORADOL IVP RT PAIN OF 5/10.
[2018-12-04 22:16] VITALS: BP 127/76
--- NOTE | 2018-12-04 22:17 | NUR ---
PT. AWAKE AND ALERT. VERBALIZING WELL WITH FAMILY MEMBERS. PT. CALL LIGHT WITH IN REACH. NO N/V NOTED. TELEMETRY MONITORING.
[2018-12-04] MEDS ORDERED: MAG SULF 2000 MG/WATER PREMIX 50 ML IV SCH (23:00)
--- NOTE | 2018-12-04 23:10 | NUR ---
PT. AWAKE AND ASSISTED TO RESTROOM TO URINATE. ABLE TO USE CALL LIGHT WELL FOR ASSISTANCE. AMBULATING WELL. TELEMETRY MONITORING.
[2018-12-04] MEDS ORDERED: MAG SULF 2000 MG/WATER PREMIX 50 ML IV ONE (23:40)
[2018-12-05 00:11] VITALS: BP 121/71
--- NOTE | 2018-12-05 00:15 | NUR ---
SLEEPING. WAKES UP EASILY WHEN TOUCHED OR CALLED BY NAME. TELEMETRY MONITORING.
[2018-12-05] MEDS: MAG SULF 2000 MG/WATER PREMIX 50 ML IV SCH ×2 (00:17→22:44)
[2018-12-05] MEDS: DEXT 5% / NACL 0.45% 1,000 ML IV SCH ×4 (01:17→20:49)
[2018-12-05] MEDS: LACTATED RINGERS 1,000 ML IV SCH (01:58)
[2018-12-05] MEDS: metroNIDAZOLE 500 MG/NS PREMIX 100 ML IV SCH ×3 (04:42→20:49)
[2018-12-05 05:16] VITALS: BP 120/72
--- NOTE | 2018-12-05 06:44 | NUR ---
AWAKE AT THIS TIME. ASSISTED TO RESTROOM BY ANOTHER RN. ABLE TO VERBALIZE NEEDS WELL. USES CALL LIGHT FOR HELP. NO BM YET AT THIS TIME.
[2018-12-05] MEDS: LEVOTHYROXINE 0.05 MG TAB PO SCH (06:50)
[2018-12-05] MEDS ORDERED: CYCLOBENZAPRINE 10 MG TAB PO ONE (07:00)
[2018-12-05 07:20] LABS: ANION GAP 12.4 (8-16); CARBON DIOXIDE 27.4 mmol/L (21-32); CREATININE 0.8 mg/dL (0.6-1.3); POTASSIUM 3.8 mmol/L (3.5-5.1)
[2018-12-05 07:29] LABS: HEMATOCRIT 43.3 % (36-48); HEMOGLOBIN 14.4 g/dL (12.0-16.0); LYMPHOCYTES # (AUTO) 0.9 K/uL (2.5-16.5); MEAN CORPUSCULAR HEMOGLOBIN 29 pg (27-31); MEAN CORPUSCULAR HGB CONC 33 g/dL (33-37); MEAN CORPUSCULAR VOLUME 88.6 fL (80-94); MONOCYTES # (AUTO) 0.6 K/uL (0.8-1.0); MONOCYTES % (AUTO) 3.4 % (1.7-9.3); NEUTROPHILS % (AUTO) 91.6 % (42.2-75.2); PLATELET COUNT (AUTO) 208 K/uL (140-450); RED BLOOD CELL COUNT(AUTO) 4.88 MIL/uL (4.20-5.40); RED CELL DISTRIBUTION WIDTH 14.7 % (11.6-13.7); WHITE BLOOD COUNT (AUTO) 18.6 K/uL (4.8-10.8)
[2018-12-05 07:31] LABS: MAGNESIUM 2.5 mg/dL (1.8-2.4); PHOSPHORUS 3.4 mg/dL (2.5-4.9)
--- NOTE | 2018-12-05 07:33 | NUR ---
ENDORSED TO NEXT RN FOR CONTINUITY OF CARE AWAKE AND ALERT.
--- NOTE | 2018-12-05 07:34 | NUR ---
RECEIVED REPORT FROM SOLAR SALES ASSESSOR NURSE. PATIENT SITTING DOWN IN BED COMFORTABLY. PAIN WITHIN TOLERABLE AT THIS TIME. AAOX4, CALM, COOPERATIVE, SKIN COLOR APPROPRIATE TO ETHNICITY, WARM TO TOUCH. HAS 3 ABD S/P LAP APPENDECTOMY WOUND, DRESSING DRY AND INTACT. PATIENT REPORT VOIDING AND AMBULATING TO BATHROOM. NOT PASSING GAS, NOR ANY BM YET. DENIES ANY NAUSEA/VOMITING OVERNIGHT. IV SITE INTACT. PATENT, AND INFUSING IVF PER MD ORDERS. REVIEWED PLAN OF CARE WITH PATIENT. PATIENT VERBALIZED UNDERSTANDING. SAFETY MEASURES IN PLACE, CALL LIGHT WITHIN REACH. WILL CONTINUE TO MONITOR.
[2018-12-05 08:00] VITALS: BP 128/75
--- NOTE | 2018-12-05 08:09 | NUR ---
PATIENT HAS BEEN SCREENED AND CATEGORIZED HIGH NUTRITION RISK. PATIENT WILL BE SEEN WITHIN 1-2 DAYS OF ADMISSION. 12/05/18-12/06/[address]
[2018-12-05] MEDS: LACTOBACILLUS RHAMNOSUS GG 1 EACH CAP PO SCH (09:33)
[2018-12-05] MEDS: PARoxetine 10 MG TAB PO SCH (09:33)
[2018-12-05] MEDS: LOSARTAN 50 MG TAB PO SCH (09:33)
[2018-12-05] MEDS: SODIUM PHOS / POTASSIUM PHOS 1 PKT PDR PO SCH (09:33)
[2018-12-05] MEDS: FAMOTIDINE 20 MG TAB PO SCH (09:37)
[2018-12-05] MEDS ORDERED: CYCLOBENZAPRINE 10 MG TAB PO SCH (09:41)
--- NOTE | 2018-12-05 09:41 | NUR ---
PATIENT AMBULATED TO BATHROOM AND BACK TO BED. DAUGHTER AT BEDSIDE. SCHEDULED MEDICATIONS DUE GIVEN. WILL CONTINUE TO MONITOR.
--- NOTE | 2018-12-05 10:30 | NUR ---
PATIENT AMBULATING AROUND [facility] WITH FAMILY MEMBER. WILL CONTINUE TO MONITOR.
[2018-12-05 12:00] VITALS: BP 137/74
[2018-12-05] MEDS: SIMETHICONE 80 MG TAB.CHEW PO PRN ×2 (13:25→21:10)
--- NOTE | 2018-12-05 13:29 | NUR ---
PATIENT SITTING DOWN IN BED TALKING WITH FAMILY MEMBER AT BEDSIDE. NO DISTRESS NOTED. HAS NOT PASSED GAS YET AND REPORT DISCOMFORT IN ABD AREA. SIMETHICONE GIVEN AT THIS TIME. SCHEDULED ANTIBIOTICS DUE GIVEN. WILL CONTINUE TO MONITOR.
--- NOTE | 2018-12-05 14:43 | NUR ---
12/05/18 RD INITIAL ASSESSMENT COMPLETED PLEASE REFER TO NUTRITION ASSESSMENT UNDER CARE ACTIVITY FOR ESTIMATED NUTRITIONAL NEEDS. 1. CONTINUE FULL LIQUID DIET TOLERATED 2. RD PROVIDED PATIENT WITH EDUCATION ON EATING FOR A HEALTHY WEIGHT AND WAYS TO INCORPORATE MORE FRUITS AND VEGETABLES. PT ACCEPTED 3. RD TO FOLLOW-UP 5-7 DAYS, LOW RISK EULALIA TORRES RD
[2018-12-05 16:00] VITALS: BP 139/76
--- NOTE | 2018-12-05 16:44 | NUR ---
DR. HART AT BEDSIDE REVIEWING PLAN OF CARE WITH PATIENT. WILL CONTINUE TO MONITOR.
--- NOTE | 2018-12-05 18:30 | NUR ---
PATIENT LYING DOWN IN BED TALKING TO FAMILY MEMBER AT BEDSIDE. NO DISTRESS NOTED. DENIES ANY PAIN. CONDITION. NO BM TODAY. WILL CONTINUE TO MONITOR.
--- NOTE | 2018-12-05 19:15 | NUR ---
GAVE REPORT TO EDI ANALYST NURSE FOR CONTINUITY OF CARE. PATIENT IN STABLE CONDITION.
--- NOTE | 2018-12-05 19:16 | NUR ---
RECEIVED REPORT FROM DAY SHIFT NURSE CALDERON-RN AT BEDSIDE. PT RESTING IN BED, AOX4 WITH DAUGHTER AT BEDSIDE, ON ROOM AIR WITH LEFT AC #20G RUNNING D5-NS 0.45% @126ML/HR. DISCUSSED PLAN OF CARE AND PT VERBALIZED UNDERSTANDING. NO S/S OF RESPIRATORY DISTRESS OR DISCOMFORT NOTED AT THIS TIME. S/P LAP. APPENDECTOMY WITH X3 INCISIONS ON ABDOMEN COVERED IN BANDAIDS. BED IN LOWEST POSITION, BED BREAKS ON, BOTH SIDE RAILS UP. BEDSIDE TABLE AND CALL LIGHT ARE WITHIN REACH. WILL CONTINUE TO MONITOR.
[2018-12-05 20:00] VITALS: BP 131/72
--- NOTE | 2018-12-05 20:00 | NUR ---
VITAL SIGNS TAKEN AND TOLERATED WELL. NO S/S OF RESPIRATORY DISTRESS OR DISCOMFORT NOTED AT THIS TIME. WILL CONTINUE TO MONITOR.
--- NOTE | 2018-12-05 20:49 | NUR ---
SCHEDULED MEDICATION FLAGYL GIVEN AND NEW BAG OF IVF HUNG. PT TOLERATED WELL. NO S/S OF RESPIRATORY DISTRESS OR DISCOMFORT NOTED AT THIS TIME. WILL CONTINUE TO MONITOR.
--- NOTE | 2018-12-05 21:10 | NUR ---
PT C/O BLOATING AND MEDICATED WITH MYLICON. PT TOLERATED WELL. NO S/S OF RESPIRATORY DISTRESS OR DISCOMFORT NOTED AT THIS TIME. WILL CONTINUE TO MONITOR.
--- NOTE | 2018-12-05 22:00 | NUR ---
PT SLEEPING IN BED. NO S/S OF RESPIRATORY DISTRESS OR DISCOMFORT NOTED AT THIS TIME. WILL CONTINUE TO MONITOR.
--- NOTE | 2018-12-05 22:45 | NUR ---
SPOKE WITH DR. CUNNINGHAM REGARDING ELEVATED MAGNESIUM LEVEL OF 2.5 AND HAVING A SCHEDULED MAGNESIUM SULFATE IVPB FOR MIDNIGHT. MD ORDERED NOT TO GIVE DUE TO ELEVATED MAGNESIUM LEVEL.
[2018-12-06] VITALS: BP 116/75
--- NOTE | 2018-12-06 | NUR ---
VITAL SIGNS TAKEN AND TOLERATED WELL. NO S/S OF RESPIRATORY DISTRESS OR DISCOMFORT NOTED AT THIS TIME. WILL CONTINUE TO MONITOR.
--- NOTE | 2018-12-06 02:00 | NUR ---
PT SLEEPING IN BED. NO S/S OF RESPIRATORY DISTRESS OR DISCOMFORT NOTED AT THIS TIME. WILL CONTINUE TO MONITOR.
[2018-12-06] MEDS: metroNIDAZOLE 500 MG/NS PREMIX 100 ML IV SCH ×2 (04:15→12:35)
--- NOTE | 2018-12-06 04:15 | NUR ---
SCHEDULED MEDICATION FLAGYL GIVEN AND TOLERATED WELL. NO S/S OF RESPIRATORY DISTRESS OR DISCOMFORT NOTED AT THIS TIME. WILL CONTINUE TO MONITOR.
[2018-12-06] MEDS: LEVOTHYROXINE 0.05 MG TAB PO SCH (06:22)
--- NOTE | 2018-12-06 06:22 | NUR ---
SCHEDULED MEDICATION SYNTHROID GIVEN AND TOLERATED WELL. NO S/S OF RESPIRATORY DISTRESS OR DISCOMFORT NOTED AT THIS TIME. WILL CONTINUE TO MONITOR.
[2018-12-06] MEDS: DEXT 5% / NACL 0.45% 1,000 ML IV SCH (07:20)
--- NOTE | 2018-12-06 07:51 | NUR ---
RECEIVED BED SIDE REPORT FROM [employer] TRANSPORT DRIVER RN. PT A/O X4, AMBULATES STEADY, ON RA IN NO RESP DISTRESS. ON A FULL LIQUID DIET, PT DENIES N/V. PT STATES SHE IS PASSING LITTLE AMOUNT OF GAS BUT NO BM. 3 INCISIONS PRESENT ON ABDOMEN, BANDAGES PRESENT, DRY BLOOD NOTED. LEFT AC RUNNINIG D5 1/2 NS AT 126CC/HR. WILL CONTINUE TO MONITOR
[2018-12-06] MEDS: PARoxetine 10 MG TAB PO SCH (08:11)
[2018-12-06] MEDS: FAMOTIDINE 20 MG TAB PO SCH (08:11)
[2018-12-06] MEDS: LACTOBACILLUS RHAMNOSUS GG 1 EACH CAP PO SCH (08:11)
[2018-12-06] MEDS: SIMETHICONE 80 MG TAB.CHEW PO PRN (08:11)
[2018-12-06] MEDS: LOSARTAN 50 MG TAB PO SCH (08:12)
--- NOTE | 2018-12-06 08:30 | NUR ---
GAVE MILICON D/T PT NOT PASSING GAS. WILL CONTINUE TO MONITOR. PT AMBULATORY, STEADY, PT DENIES PAIN. WILL CONTINUE TO MONITOR
[2018-12-06 08:49] LABS: BASOPHILS % (AUTO) 0.3 % (0.0-2.0); EOSINOPHILS % (AUTO) 0.5 % (0.0-4.0); HEMATOCRIT 38.6 % (36-48); LYMPHOCYTES # (AUTO) 1.5 K/uL (2.5-16.5); LYMPHOCYTES % (AUTO) 18.1 % (20.5-51.1); MEAN CORPUSCULAR HEMOGLOBIN 30 pg (27-31); MEAN CORPUSCULAR HGB CONC 34 g/dL (33-37); MEAN CORPUSCULAR VOLUME 88.9 fL (80-94); MONOCYTES # (AUTO) 0.5 K/uL (0.8-1.0); MONOCYTES % (AUTO) 5.7 % (1.7-9.3); NEUTROPHILS # (AUTO) 6.2 K/uL (1.8-7.7); NEUTROPHILS % (AUTO) 75.4 % (42.2-75.2); PLATELET COUNT (AUTO) 193 K/uL (140-450); RED BLOOD CELL COUNT(AUTO) 4.34 MIL/uL (4.20-5.40); RED CELL DISTRIBUTION WIDTH 14.5 % (11.6-13.7); WHITE BLOOD COUNT (AUTO) 8.2 K/uL (4.8-10.8)
--- NOTE | 2018-12-06 11:37 | NUR ---
TOOK DC PHOTOGRAPHS. INCISIONS LEFT HAKAN. NO BLEEDING NOTED, NO PURULENT, REDNESS OR FOUL ODOR NOTED. GAVE DC INSTRUCTIONS AND PT VERBALIZED UNDERSTANDING. GAVE PT RX MED. PT A/O X4 AND SIGNED DC PAPER WORK. TAUGHT PT HOW TO USE IS. PT VERBALIZED UNDERSTANDING. FAMILY MEMBER AT BEDSIDE. REGULAR DIET ORDERED FOR LUNCH AND WILL MONITOR FOR TOLERANCE OF FOOD.
--- NOTE | 2018-12-06 13:47 | NUR ---
LEFT INCISIONS TALENT ACQUISITION DIRECTOR. MEASURES 3CM X 1CM. NO BLEEDING NOTED. EDUCATED PT ON WOUND CARE AND LIFTING LIMITATIONS. PT VERBALIZED UNDERSTANDING. TOOK IV OUT D/T INFILTRATION. PT TOLERATED WELL.
--- NOTE | 2018-12-06 13:56 | NUR ---
PT WHEELED OFF OF UNIT TO THE FRONT LOBBY. PERSONAL BELONGINGS TAKEN WITH PT. PAPERWORK AND RX MED GIVEN. IV TAKEN OUT. PT'S WRISTBAND TAKEN OUT. PT STABLE.
== END 2018-12-06 13:56 | disposition home or self-care (01) | DRG 710 ==
LOC: MED 13:00 → MTU 15:44
PROVIDERS: ADMIT General Practice; ATTEND General Practice
PROC: 0DTJ4ZZ Resection of Appendix, Percutaneous Endoscopic Approach (ICD-10-PCS; principal; 2018-12-04 17:30)
DX: A41.9 Sepsis, unspecified organism (principal); K35.33 Acute appendicitis with perforation, localized peritonitis, and gangrene, with abscess; E83.39 Other disorders of phosphorus metabolism; E83.42 Hypomagnesemia; M41.9 Scoliosis, unspecified; I10 Essential (primary) hypertension; F32.9 Major depressive disorder, single episode, unspecified; F41.1 Generalized anxiety disorder; E87.6 Hypokalemia; K21.9 Gastro-esophageal reflux disease without esophagitis; E03.9 Hypothyroidism, unspecified; Z90.710 Acquired absence of both cervix and uterus; Z79.899 Other long term (current) drug therapy; Z82.3 Family history of stroke
CPT/HCPCS: 36415; 71045; 80048; 80053; 80305; 81003; 82140; 82150; 82374; 83036; 83605; 83690; 83735; 83880; 84100; 84439; 84443; 84484; 85025; 85610; 85730; 86886; 86900; 86901; 87040; 87081; 87086; 93005; 96374; 96375; 99285; J0696; J1885; J2001; J2175; J2250; J2405; J3010; J3475; J3480; J3490; J7030; J7060; J7120; Q0092

== ENCOUNTER 2021-11-15 21:11 | Emergency (ER) | payer BC, MEDICAID ==
[~2021-11-15] VITALS: Ht 162.6 cm; Wt 65.8 kg
[~2021-11-15 21:11] MED LIST changes: -IBUP-2213 PO; -PROG100C4 PO
[2021-11-15 21:37] VITALS: BP 192/96
--- NOTE | 2021-11-15 21:44 | NUR ---
TO LOBBY FOLLOWING TRIAGE
--- NOTE | 2021-11-16 01:17 | NUR ---
Dr. Prado examining patient.
--- NOTE | 2021-11-16 01:26 | NUR ---
LAB WITH PT
[2021-11-16 01:35] LABS: BASOPHILS % (AUTO) 0.4 % (0.0-2.0); EOSINOPHILS # (AUTO) 0.1 K/uL (0-0.4); EOSINOPHILS % (AUTO) 0.8 % (0.0-4.0); HEMATOCRIT 45.3 % (36-48); HEMOGLOBIN 15.5 g/dL (12.0-16.0); LYMPHOCYTES # (AUTO) 2.2 K/uL (2.5-16.5); LYMPHOCYTES % (AUTO) 26.4 % (20.5-51.1); MEAN CORPUSCULAR HEMOGLOBIN 29 pg (27-31); MEAN CORPUSCULAR HGB CONC 34 g/dL (33-37); MONOCYTES # (AUTO) 0.5 K/uL (0.8-1.0); MONOCYTES % (AUTO) 5.5 % (1.7-9.3); NEUTROPHILS # (AUTO) 5.5 K/uL (1.8-7.7); NEUTROPHILS % (AUTO) 66.9 % (42.2-75.2); PLATELET COUNT (AUTO) 242 K/uL (140-450); RED BLOOD CELL COUNT(AUTO) 5.27 MIL/uL (4.20-5.40); RED CELL DISTRIBUTION WIDTH 13.7 % (11.6-13.7); WHITE BLOOD COUNT (AUTO) 8.2 K/uL (4.8-10.8)
--- NOTE | 2021-11-16 01:45 | NUR ---
PT RETURN FROM RADIOLOGY
[2021-11-16] MEDS: diazePAM 5 MG TAB PO ONE (02:12)
--- NOTE | 2021-11-16 02:15 | NUR ---
56 Y.O. F C/O HIGH BP. "IT WAS 165/113". PT COMPLAINS OF CHEST PAIN, CHILLS, SOB, DIAHRREA, NAUSEA, AND URGE TO GO TO THE BATHROOM. PT SAID SHE FEELS LIKE " THE VEINS ARE MOVING IN HER HEAD". DENIES ANY VOMITING. A&OX4, SKIN INTACT, STEADY GAIT, AND VITALS WNL.
[2021-11-16 02:28] LABS: ALBUMIN 4.2 g/dL (3.4-5.0); ANION GAP 12.4 (8-16); ASPARTATE AMINOTRANSFERASE 30 U/L (15-37); CARBON DIOXIDE 27.7 mmol/L (21-32); CHLORIDE 105 mmol/L (98-107); CREATININE 0.6 mg/dL (0.6-1.3); GFR ARICAN-AMERICAN 133 mL/min (>90); GLUCOSE 108 mg/dL (74-106); POTASSIUM 4.1 mmol/L (3.5-5.1); SODIUM SERUM 141 mmol/L (136-145); TOTAL BILIRUBIN 0.3 mg/dL (0.0-1.0); UREA NITROGEN, BLOOD 14 mg/dL (7-18)
[2021-11-16 02:57] VITALS: BP 139/80
== END 2021-11-16 02:58 | disposition home or self-care (01) ==
LOC: MED 21:11
DX: I10 Essential (primary) hypertension (principal); R42 Dizziness and giddiness; R07.9 Chest pain, unspecified; Z90.49 Acquired absence of other specified parts of digestive tract
CPT/HCPCS: 36415; 70450; 71045; 80053; 84484; 85025; 93005; 99285